=== PATIENT | male | born 1960 | race Caucasian/White ===

== ENCOUNTER 2017-02-23 15:23 | Emergency (ER) | payer MEDICARE, OTHER ==
[2017-02-23 18:01] LABS: HEMOGLOBIN 13.4 gm/dl (14.0-17.5); RED BLOOD COUNT 3.68 M/UL (4.20-5.50); WHITE BLOOD COUNT 11.4 K/UL (4.5-11.0)
[2017-02-23 18:41] LABS: BUN/CREATININE RATIO 12 (0-10)
== END 2017-02-23 21:48 | disposition home or self-care (01) ==
LOC: ER1 15:23
PROVIDERS: Physician Assistant
DX: S02.641A Fracture of ramus of right mandible, initial encounter for closed fracture (principal); S20.212A Contusion of left front wall of thorax, initial encounter; S00.83XA Contusion of other part of head, initial encounter; S10.93XA Contusion of unspecified part of neck, initial encounter; W18.2XXA Fall in (into) shower or empty bathtub, initial encounter; Y92.89 Other specified places as the place of occurrence of the external cause
CPT/HCPCS: 70450; 70486; 70491; 71020; 80053; 85025; 96374; 96375; 99284; J2270; J2405; J7050; Q9962